=== PATIENT | male | born 1960 | race Caucasian/White ===

== ENCOUNTER 2016-07-24 22:01 | Emergency (ER) | payer BC, OTHER ==
--- NOTE | 2016-07-24 22:34 | ERNOTE ---
Chest Pain/Cardiac HPI Chief Complaint: Palpitations Time Seen by Provider: 07/24/16 22:22 Source: patient Exam Limitations: no limitations Immunizations: IMMUNIZATION HX Immunizations Up to Date No History of Influenza Vaccine Yes Hx Pneumococcal Vaccination No Allergies/Adverse Reactions: Allergies No Known Drug Allergies Allergy (Verified 07/24/16 22:11) Home Medications: HOME MEDICATIONS Azathioprine [Azasan] 50 mg PO TID 07/24/16 [Last Taken Unknown] Meloxicam 7.5 mg PO TID 07/24/16 [Last Taken Unknown] Propranolol HCl 60 mg PO DAILY 07/24/16 [Last Taken Unknown] Ropinirole HCl [Requip] 0.25 mg PO TID 07/24/16 [Last Taken Unknown] traMADol HCL [Ultram] 50 mg PO TID PRN 07/24/16 [Last Taken Unknown] Narrative: Palpitations onset this evening, mild shortness of breath Timing: constant, getting worse Severity/Quality: moderate - Patient's Past Medical History Patient History - Medical: No pertinent hx Patient History - Cancer: No Hx of Cancer Patient History - Surgical Procedures: Colonoscopy - Social History Living Situations: home Smoking Status: Never smoker Alcohol Use: none Drug Use: none Physical Exam - Physical Exam Cardiovascular/Chest: Present: irregularly irregular ED Progress - Results and Orders Patient's Lab Results:: I have reviewed the patient's lab results. Results and Orders: Laboratory Tests 07/24/16 07/24/16 07/24/16 22:52 22:52 22:52 WBC 5.8 Hgb 14.7 Hct 43.3 Plt Count 221 PT 10.2 INR (Anticoag Therapy) 0.98 PTT (Bee) 27.5 Sodium 141 Potassium 3.9 Chloride 105 Carbon Dioxide 29.9 Anion Gap 10.0 BUN 17 Creatinine 1.13 Est GFR (Non-Af Amer) 71 Random Glucose 103 Calcium 9.1 Total Bilirubin 0.5 AST 24 ALT 33 Alkaline Phosphatase 68 Troponin I Less than 0.017 Total Protein 7.7 Albumin 3.6 - Vital Signs Patient's Vital Signs:: I have reviewed the patient's vital signs. Vital Signs: Vital Signs 07/24/16 07/24/16 22:05 22:16 Temperature 36.4 C L Pulse Rate 102 H 102 H Respiratory 18 Rate Blood Pressure 148/79 O2 Sat by Pulse 98 Oximetry - EKG EKG read: Interp. by me EKG Comments: #1 A-fib with RVR #2 NSR - Progress/Reassessment Chief Complaint: Palpitations Progress:: Pain free at discharge Progress Note-Subjective: 07/25/16 00:13 Pt states he feels better. monitor shows regular rhythm 80-95 bpm. EKG shows NSR Departure - Departure Clinical Impression: Paroxysmal atrial fibrillation Disposition: Home Follow Up Needed Condition: Good Instructions: Atrial Fibrillation, Gtia-wk-Vbid Additional Instructions: Call your safety net maker tomorrow and get an appointment. Return the virgen monitor as directed. Return to the ER if symptoms return Referrals: [Primary Care Provider] -
[2016-07-24 23:11] LABS: Hematocrit 43.3 % (42.0-52.0); Hemoglobin 14.7 gm/dL (13.5-18.0); Mean Cell Volume 95.4 fl (78-100); Mean Corpuscular Hemoglobin 32.4 pg (27-31); Mean Corpuscular Hgb Conc 33.9 g/dl (32-36); Neutrophil # 3.8 K/mm3 (1.3-6.0); Neutrophil % 64.8 % (42-75.0); Platelet Count 221 K/mm3 (150-450); Red Blood Count 4.54 M/mm3 (4.7-6.0); Red Cell Distribution Width 13.5 % (11.5-14.0); White Blood Count 5.8 K/mm3 (4.0-10.5)
[2016-07-24 23:21] LABS: Prothrombin Time (Patient) 10.2 Seconds (9.4-11.4)
[2016-07-24 23:25] LABS: INR 0.98 INR (0.90-1.10); Partial Thrombolplastin Time 27.5 Seconds (24-32)
[2016-07-24 23:30] LABS: ALT 33 U/L (19-67); AST 24 U/L (0-48); Albumin * 3.6 gm/dl (3.4-5.0); Alkaline Phosphatase * 68 U/L (50-170); Bilirubin, Total 0.5 mg/dL (0.0-1.1); Blood Urea Nitrogen 17 mg/dL (6-23); Ca. Corrected For Albumin 9.1 mg/dL (8.4-10.2); Calcium * 9.1 mg/dL (7.9-10.9); Carbon Dioxide 29.9 mmol/L (24-32.6); Chloride 105 mmol/L (97-106); Glucose * 103 mg/dL (70-110); Potassium 3.9 mmol/L (3.4-4.6); Sodium 141 mmol/L (132-142); Total Protein 7.7 gm/dL (6.2-8.2)
[2016-07-24 23:33] LABS: Troponin I Less than 0.017 ng/ml (0.00-0.10)
[2016-07-25 01:22] VITALS: BP 110/69
== END 2016-07-25 01:25 | disposition home or self-care (01) ==
LOC: ER 22:01
DX: I48.0 Paroxysmal atrial fibrillation (principal)